=== PATIENT | female | born 1990 | race Caucasian/White ===

== ENCOUNTER 2018-09-05 04:00 | Inpatient (IN) ==
[2018-09-05] MEDS ORDERED: MEPERIDINE 50 MG/1 ML VIAL IV PRN (04:16)
[2018-09-05] MEDS ORDERED: ONDANSETRON 4 MG/2 ML VIAL IV PRN (04:16)
[2018-09-05] MEDS ORDERED: ePHEDrine 50 MG/ML AMP IV PRN (04:18)
[2018-09-05] MEDS ORDERED: PROMETHAZINE 25 MG/1 ML VIAL IM ONE (04:18)
[2018-09-05] MEDS ORDERED: NALOXONE 0.4 MG/ML VIAL IV PRN (04:18)
[2018-09-05] MEDS ORDERED: diphenhydrAMINE 50 MG/1 ML VIAL IV PRN (04:18)
[2018-09-05] MEDS ORDERED: CITRIC ACID/SODIUM CITRATE 30 ML UDCUP PO ONE (04:20)
[2018-09-05] MEDS ORDERED: FAMOTIDINE 20 MG/2 ML VIAL IV ONE (04:21)
[2018-09-05] MEDS: LACTATED RINGERS 1,000 ML IV SCH ×2 (04:30→07:50)
[2018-09-05] MEDS ORDERED: LACTATED RINGERS 1,000 ML IV SCH (04:30)
[2018-09-05] MEDS ORDERED: fentaNYL 2 MCG/ROPIV 0.2% EPID 100 ML EPIDURAL SCH (04:30)
[2018-09-05] MEDS ORDERED: OXYTOCIN/LR 20 UNIT/1,000 ML BAG IV SCH (04:30)
[2018-09-05 04:49] LABS: Basophils # 0.1 10*3/uL (0.0-0.2); Basophils % 0.4 % (0.0-0.8); Eosinophils # 0.1 10*3/uL (0.0-0.87); Eosinophils % 1.1 % (0.00-10.9); Hematocrit 31.1 VOL% (35.7-47.0); Hemoglobin 9.8 GM/DL (12.0-16.0); Immature Granulocytes Absolute 0.23 #; Lymphocytes # 2.1 10*3/uL (1.4-4.0); Lymphocytes % 17.7 % (21.3-54.2); Mean Corpuscular HGB Conc 31.5 GM/DL (32-36); Mean Corpuscular Volume 82.7 FL (87-102); Mean Platelet Volume 12.2 FL (9.6-12.0); Monocytes % 8.6 % (1.7-12.7); Neutrophils % 70.2 % (38.7-73.9); Platelet Count 128 T/CUMM (130-400); Red Blood Count 3.76 MC/CUMM (3.8-5.5); Red Cell Distribution Width 13.5 % (9.3-17.3); White Blood Count 11.6 T/CUMM (4-12)
[2018-09-05 10:58] LABS: Apearance,Urine CLEAR (Clear); Bilirubin,Urine Negative (Negative); Blood, Urine Negative (Negative); Glucose,Urine (UA) Negative (Negative); Ketones,Urine Negative (Negative); Nitrite,Urine Negative (Negative); Protein,Urine Negative; Squamous Epithelial Cell,Urine Occasional /HPF (0-10); Urine Color Straw (Yellow); Urine Specific Gravity 1.009 (1.001-1.035); Urine Urobilinogen < 2.0 EU/DL (0.2-1.0); WBC,Urine <1 /HPF (0-6)
[2018-09-05] MEDS ORDERED: miSOPROStol 200 MCG TABLET ONE (15:19)
[2018-09-05] MEDS ORDERED: METHYLERGONOVINE 0.2 MG/1 ML AMP ONE (15:20)
[2018-09-05] MEDS ORDERED: CARBOPROST TROMETHAMINE 250 MCG/ML AMP IM ONE (15:20)
[2018-09-05 16:19] LABS: Cord Arterial Blood HCO3 18.7 MMOL/L
[2018-09-05 16:22] LABS: Cord Venous Blood HCO3 21.9 MMOL/L; Cord Venous Blood PCO2 41.1 MMHG; Cord Venous Blood PO2 35.7
[2018-09-05] MEDS ORDERED: ACETAMINOPHEN/CODEINE 300-30 MG TABLET PO PRN ×2 (19:00)
[2018-09-05] MEDS: IBUPROFEN 800 MG TABLET PO PRN (20:14)
[2018-09-05] MEDS: DOCUSATE SODIUM 100 MG CAPSULE PO SCH (20:15)
[2018-09-06 05:23] LABS: Basophils % 0.3 % (0.0-0.8); Eosinophils # 0.2 10*3/uL (0.0-0.87); Eosinophils % 1.3 % (0.00-10.9); Hematocrit 30.9 VOL% (35.7-47.0); Hemoglobin 9.7 GM/DL (12.0-16.0); Immature Granulocytes Absolute 0.12 #; Lymphocytes # 1.6 10*3/uL (1.4-4.0); Lymphocytes % 12.5 % (21.3-54.2); Mean Corpuscular HGB Conc 31.4 GM/DL (32-36); Monocytes % 8.6 % (1.7-12.7); Neutrophils % 76.3 % (38.7-73.9); Platelet Count 122 T/CUMM (130-400); Red Blood Count 3.77 MC/CUMM (3.8-5.5); Red Cell Distribution Width 13.6 % (9.3-17.3); White Blood Count 12.5 T/CUMM (4-12)
[2018-09-06 06:05] LABS: Hypochromasia 1+; Platelet Estimate Adequate
[2018-09-06] MEDS: FERROUS SULFATE 325 MG TABLET PO SCH ×2 (10:02→20:28)
[2018-09-06] MEDS: DOCUSATE SODIUM 100 MG CAPSULE PO SCH ×2 (10:02→20:28)
[2018-09-06] MEDS: IBUPROFEN 800 MG TABLET PO PRN (19:08)
[2018-09-07 07:21] VITALS: BP 87/50
[2018-09-07] MEDS ORDERED: DIPH/TET/ACEL PERT BOOSTER VACCINE 0.5 ML VIAL IM ONE (08:30)
[2018-09-07] MEDS: FERROUS SULFATE 325 MG TABLET PO SCH (09:11)
[2018-09-07] MEDS: DOCUSATE SODIUM 100 MG CAPSULE PO SCH (09:11)
== END 2018-09-07 12:15 | disposition home or self-care (01) | DRG 807 ==
LOC: N.LDOUT 04:00 → N.LD 04:03 → N.OB 18:45
PROVIDERS: ADMIT Obstetrics & Gynecology; ATTEND Obstetrics & Gynecology